=== PATIENT | male | born 1960 | race Native Hawaiian/Other Pacific Islander ===

== ENCOUNTER 2018-05-28 09:39 | Outpatient (CLI) | payer OTHER | END 2018-05-28 23:00 | disposition home or self-care (01) | LOC: LABW 09:39 | DX: I10 Essential (primary) hypertension (principal); G89.4 Chronic pain syndrome; F41.8 Other specified anxiety disorders ==

== ENCOUNTER 2019-04-29 03:15 | Outpatient (CLI) | payer OTHER ==
[2019-04-30] MEDS ORDERED: ASPIRIN325 M1 PO (13:39)
[2019-04-30] MEDS ORDERED: ATOR20TA2 PO (13:39)
[2019-04-30] MEDS ORDERED: CARV6.25 PO (13:40)
[2019-04-30] MEDS ORDERED: FURO40TA93 PO (13:40)
[2019-04-30] MEDS ORDERED: SPIR50TA8 PO (13:41)
[2019-04-30] MEDS ORDERED: POTA10CA3 PO (13:41)
== END 2019-04-29 03:28 | disposition short-term general hospital (02) ==
LOC: AMB 03:15
DX: R06.03 Acute respiratory distress (principal); R60.9 Edema, unspecified
CPT/HCPCS: A0425; A0427

== ENCOUNTER 2019-04-29 03:35 | Observation (INO) | payer OTHER ==
[2019-04-29] VITALS (7 sets, daily range): BP systolic 125–141; BP diastolic 73–95; TEMP 97.7–98.9; Ht 185.4 cm; Wt 127.0 kg
[~2019-04-29] VITALS: Ht 185.4 cm; Wt 127.0 kg
[2019-04-29 04:02] LABS: PLATELET COUNT 189 K/uL (142-355)
[2019-04-29 04:21] LABS: PARTIAL THROMBOPLASTIN TIME 26.3 SECONDS (24.5-33.6)
[2019-04-30] VITALS: BP 135/89; TEMP 97.6
[2019-04-30 04:00] VITALS: BP 130/80; TEMP 98.7
[2019-04-30 08:00] VITALS: BP 113/81; TEMP 97.6
[2019-04-30 10:58] LABS: POTASSIUM 3.8 mmol/L (3.6-5.2)
[2019-04-30 10:59] LABS: PLATELET COUNT 213 K/uL (142-355)
[2019-04-30 12:00] VITALS: BP 114/74; TEMP 97.9
[2019-04-30] MEDS ORDERED: ATOR20TA2 PO (13:39)
[2019-04-30] MEDS ORDERED: ASPIRIN325 M1 PO (13:39)
[2019-04-30] MEDS ORDERED: CARV6.25 PO (13:40)
[2019-04-30] MEDS ORDERED: FURO40TA93 PO (13:40)
[2019-04-30] MEDS ORDERED: POTA10CA3 PO (13:41)
[2019-04-30] MEDS ORDERED: SPIR50TA8 PO (13:41)
== END 2019-04-30 15:10 | disposition home or self-care (01) ==
LOC: ED 03:35 → MED/SURG 04:28
PROVIDERS: Student in an Organized Health Care Education/Training Program; ADMIT Internal Medicine
DX: I50.21 Acute systolic (congestive) heart failure (principal); G47.33 Obstructive sleep apnea (adult) (pediatric); J18.8 Other pneumonia, unspecified organism; R40.0 Somnolence; I51.7 Cardiomegaly
CPT/HCPCS: 36415; 80048; 83735; 83880; 84484; 85027; 85610; 85730; 87040; 87899; 93005; 93306; 94640; 94664; 94760; 96365; 96366; 96372; 96374; 96375; 99220; 99284; G0378; J0456; J0696; J1650; J1940

== ENCOUNTER 2021-05-27 12:28 | Observation (INO) | payer OTHER ==
[~2021-05-27] VITALS: Ht 188 cm; Wt 134.7 kg
[2021-05-27] VITALS (14 sets, daily range): BP systolic 106–142; BP diastolic 67–82; TEMP 97.9–98.2; Ht 188 cm; Wt 134.7 kg
[~2021-05-27 12:28] MED LIST: ASPIRIN325 M1 PO; ATOR20TA2 PO; CARV6.25 PO; FURO40TA93 PO; POTA10CA3 PO; SPIR50TA8 PO
[2021-05-27 12:56] LABS: PLATELET COUNT 267 K/uL (142-355)
[2021-05-27 13:01] LABS: POTASSIUM 4.5 mmol/L (3.6-5.2)
[2021-05-27 13:06] LABS: PARTIAL THROMBOPLASTIN TIME 28.3 SECONDS (24.5-33.6)
[2021-05-28 00:06] VITALS: BP 98/57; TEMP 98.1
[2021-05-28 04:00] VITALS: BP 91/54; TEMP 97.8
[2021-05-28 08:00] VITALS: BP 116/60; TEMP 98.1
[2021-05-28 10:32] LABS: PLATELET COUNT 246 K/uL (142-355)
[2021-05-28 12:00] VITALS: BP 103/49; TEMP 97.9
[2021-05-28] MEDS ORDERED: ASPIR-8181 MG PO (14:21)
[2021-05-28] MEDS ORDERED: ENTRESTO 24-261 TAB PO (14:21)
[2021-05-28] MEDS ORDERED: LIPITOR20 MG PO (14:25)
[2021-05-28] MEDS ORDERED: OXYCODONE30 MG PO (14:30)
== END 2021-05-28 14:30 | disposition home or self-care (01) ==
LOC: ED 12:28 → MED/SURG 17:13
PROVIDERS: Family Medicine; ADMIT Internal Medicine; ATTEND Internal Medicine
DX: R07.89 Other chest pain (principal); G47.33 Obstructive sleep apnea (adult) (pediatric); I11.0 Hypertensive heart disease with heart failure; I50.9 Heart failure, unspecified; F32.A Depression, unspecified
CPT/HCPCS: 36415; 80048; 80053; 82550; 83880; 84484; 85027; 85379; 85610; 85730; 87635; 93005; 94760; 96360; 96372; 96375; 96376; 99220; 99284; G0378; J1650; J2270; Q9963; U0003